=== PATIENT | male | born 1970 | race African-American/Black ===

== ENCOUNTER 2016-06-30 11:15 | Emergency (ER) ==
[2016-06-30 11:21] VITALS: BP 154/76
--- NOTE | 2016-06-30 11:59 | PROVIDER DOCUMENTATION ---
HPI-General Adult - General Chief Complaint: Request RX Stated Complaint: HIGH B/P,DIZZINESS Time Seen by Provider: 06/30/16 11:36 Source: patient Allergies/Adverse Reactions: Patient Allergies Allergy/AdvReac Type Severity Reaction Status Date / Time enalapril maleate * AdvReac Unknown Verified 06/30/16 11:21 [From Vasotec] enalaprilat dihydrate * AdvReac Unknown Verified 06/30/16 11:21 [From Vasotec] - History of Present Illness -Gen Adult Nature of Presenting Problems: 46 y/o BM c/o HTN, dizziness with standing, medication refill x 2 days. Pt states hx of HTN x 15 years. States out of his medication x 3 days. Reports no CP, MCGUIRE, vision changes, numbness/tingling, weakness. States he is concerned because he gets dizziness when his BP is high. Took BP at home, which was 154/ 100. Reports that he will not be able to see doctor for 3 weeks, so he came here before sxs got worse. Review of Systems - Adult - REVIEW OF SYSTEMS - ADULT Constitutional: reports: no symptoms reported. denies: chills, fever Eyes: reports: no symptoms reported. denies: blurred vision, double vision Ears, Nose, Mouth & Throat: reports: no symptoms reported. denies: ear pain, nose pain Cardiovascular: reports: no symptoms reported. denies: chest pain, palpitations Respiratory: reports: no symptoms reported. denies: dyspnea on exertion, shortness of breath Gastrointestinal: reports: no symptoms reported. denies: abdominal pain, nausea , vomiting Genitourinary: reports: no symptoms reported. denies: dysuria, frequency Musculoskeletal: reports: no symptoms reported. denies: joint pain, joint swelling Integumentary: reports: no symptoms reported. denies: nail changes, rash Neurological: reports: see HPI, dizziness/vertigo. denies: numbness, paresthesia Psychiatric: reports: no symptoms reported Endocrine: reports: no symptoms reported. denies: cold intolerance, heat intolerance Hematologic/Lymphatic: reports: no symptoms reported. denies: easy bruising, prolonged bleeding Allergic/Immunologic: reports: no symptoms reported All Other Systems: Reviewed and Negative Past History - Adult - PAST MEDICAL HISTORY-ADULT Review of Records: reports: Nursing Assessment Review, Medications Reviewed Cardiovascular: reports: HTN Physical Exam-General - PHYSICAL EXAM-ADULT Initial Vital Signs Reviewed: Yes - CONSTITUTIONAL General Appearance: alert, no apparent distress - EYES Eyes: PERRL/EOMI, pink conjunctivae. negative: EOM palsy, photophobia - HEAD, EARS, NOSE, MOUTH & THROAT HENMT: normocephalic/atraumatic, moist mucous membranes. negative: hearing deficit - NECK Neck: full range of motion, supple, normal inspection - RESPIRATORY Respiratory: lungs clear, normal breath sounds. negative: crackles, rales, rhonchi, stridor, wheezing - CARDIOVASCULAR Cardiovascular: regular rate, rhythm. 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 negative: aphasia, facial droop, focal weakness, motor weakness, sensory deficit - PSYCHIATRIC Psych/Mental Status: normal mood/affect, normal thought content, normal thought process, oriented x 3 Progress - PLAN OF CARE/RESULTS Progress/Plan/Lab Results: Vital Signs Temp Pulse Resp BP Pulse Ox 06/30/16 11:17 98.6 F 90 20 154/76 100 enalapril maleate * [From Vasotec] Adverse Reaction (Verified 06/30/16 11:21) Unknown enalaprilat dihydrate * [From Vasotec] Adverse Reaction (Verified 06/30/16 11:21 ) Unknown Atenolol [Tenormin] 25 mg PO DAILY #30 tablet 06/30/16 Clonidine [Catapres] 0.2 mg PO BID #60 tablet 06/30/16 Discussed importance of f/u with pt and proper medication use. Departure - Departure Time of Disposition Order: 12:01 DIAGNOSIS: Medication refill Hypertension Qualifiers: Hypertension type: essential hypertension Qualified Code(s): I10 - Essential ( primary) hypertension Disposition: HOME 01 Certified Medical Emergency: Emergent Condition: Stable Additional Instructions: Take medications as directed. Follow up with PCP for further management. Return if sudden/severe headache, chest pain, or vision changes. ED Follow Up Instructions: You have been treated by a care provider in the Emergency Department. These instructions are being provided to you so you can have an understanding of how to care for yourself upon discharge. Upon discharge from the Emergency Department, you are responsible for making arrangements for follow-up care by a physician of your choice. Take all prescribed medications as directed. Return to the Emergency Department immediately for any new or worsening symptoms. You may call the Physician Referral phone number at [phone] to obtain a list of Physicians who are taking new patients. Prescriptions: Clonidine [Catapres] 0.2 mg PO BID #60 tablet Atenolol [Tenormin] 25 mg PO DAILY #30 tablet Referrals: None,PCP [Primary Care Provider] - [facility] [NON[facility]FF] - Attestation - Physician/ Mid-level Attestation Patient care was provided by Mid-level provider (BOREMATIC OPERATOR/PA):: Yes Mid-level provider:: Pham Hernadez Mid-level documentation review:: The Mid-level provider documentation, treatment plan and medical decision making was reviewed by the physician who agrees with all treatment and medical decision making by the MLP.
== END 2016-06-30 12:23 | disposition home or self-care (01) ==
LOC: ED 11:15
DX: R42 Dizziness and giddiness (principal); I10 Essential (primary) hypertension; Z76.0 Encounter for issue of repeat prescription
CPT/HCPCS: 99281